=== PATIENT | female | born 2000 | race Caucasian/White ===

== ENCOUNTER → 2025-02-09 | Outpatient (CLI) | payer OTHER ==
[~2025-02-09] MED LIST: ONDA4 PO; RXONDA4ODT MM
== END | disposition home or self-care (01) ==
LOC: LAB SHORT 16:36 → LAB 16:36
DX: O09.93 Supervision of high risk pregnancy, unspecified, third trimester (principal)
CPT/HCPCS: 87081; 87150

== ENCOUNTER 2025-03-10 04:01 | Inpatient (IN) | payer OTHER ==
[~2025-03-10] VITALS: Ht 167.6 cm; Wt 77.7 kg
[2025-03-10] VITALS (12 sets, daily range): BP systolic 111–170; BP diastolic 59–86
[2025-03-10] MEDS ORDERED: OXYTOCIN/RINGER'S LACTATE 500 ML IV PRN (04:30)
[2025-03-10] MEDS ORDERED: FentaNYL Citrate 50 MCG/ML 2 ML Injection IV PRN (04:30)
[2025-03-10] MEDS ORDERED: ePHEDrine Sulfate 50 MG/ML 1ML Injection XX PRN (04:30)
[2025-03-10] MEDS ORDERED: Carboprost Tromethamine 250 MCG/ML 1ML Amp IM PRN ×2 (04:30→07:05)
[2025-03-10] MEDS ORDERED: Ondansetron HCl 2 MG / ML 2ML Vial IV PRN (04:30)
[2025-03-10] MEDS ORDERED: Methylergonovine Maleate 0.2MG / ML 1ML Amp IM PRN ×2 (04:30→07:10)
[2025-03-10] MEDS ORDERED: Oxytocin 10 Unit / ML Vial IM PRN (04:30)
[2025-03-10] MEDS ORDERED: FentaNYL 2mcg/ml-Bup 0.1% Epd 250 ML EPI PRN (04:30)
[2025-03-10] MEDS ORDERED: Tranexamic Acid 100 ML IV SCH (04:50)
[2025-03-10 04:55] LABS: BASOPHILS ABSOLUTE AUTO 0.03 K/mm3 (0.00-0.23); BASOPHILS PERCENT AUTO 0 % (0-2); EOSINOPHILS ABSOLUTE AUTO 0.06 K/mm3 (0.00-0.68); EOSINOPHILS PERCENT AUTO 1 % (0-6); Hematocrit 38.3 % (33.0-51.0); Hemoglobin 13.0 g/dL (11.5-16.0); IMMATURE GRAN ABSOLUTE AUTO 0.06 K/mm3 (0.00-0.10); IMMATURE GRAN PERCENT AUTO 1 % (0-1); LYMPHOCYTES ABSOLUTE AUTO 1.95 K/mm3 (0.84-5.20); LYMPHOCYTES PERCENT AUTO 16 % (21-46); MONOCYTES ABSOLUTE AUTO 0.81 K/mm3 (0.16-1.47); MONOCYTES PERCENT AUTO 7 % (4-13); Mean Corpuscular HGB Conc 33.9 g/dL (31.5-36.5); Mean Corpuscular Volume 93 fL (80-100); NEUTROPHILS ABSOLUTE AUTO 9.55 K/mm3 (1.96-9.15); NEUTROPHILS PERCENT AUTO 77 % (41-73); NRBC ABSOLUTE 0.00 K/mm3 (0.00-0.02); NRBC Auto 0.0 /100 WBC (0.0-0.2); Platelet Count 301 K/mm3 (150-400); RDW Coefficient Variation 13.2 % (11.7-14.2); RDW Standard Deviation 45.0 fL (35.1-46.3)
[2025-03-10] MEDS ORDERED: PRENATAL TABLE1 EAC2 PO (06:08)
[2025-03-10] MEDS ORDERED: Rho(D) Immune Globulin 300 MCG / SYR IM ONE (07:05)
[2025-03-10] MEDS ORDERED: Benzocaine Topical Anesthetic Spray 60GM TOP PRN (07:05)
[2025-03-10] MEDS ORDERED: Witch Hazel/Glycerin PADS TOP PRN (07:05)
[2025-03-10] MEDS ORDERED: Oxytocin 10 Unit / ML Vial IM ONE (07:10)
[2025-03-10] MEDS ORDERED: OXYTOCIN/RINGER'S LACTATE 500 ML IV SCH (07:10)
[2025-03-10] MEDS ORDERED: Ketorolac Tromethamine 30mg Vial IV SCH (07:20)
[2025-03-10] MEDS ORDERED: Prenatal Vit/FE Fumarate/FA 1 Tab PO SCH (09:00)
[2025-03-11 03:03] VITALS: BP 127/82
[2025-03-11 07:50] VITALS: BP 133/84
== END 2025-03-11 09:40 | disposition home or self-care (01) | DRG 806 ==
LOC: OBS 04:01 → BC 04:02 → OBS 04:30 → BC 04:31
PROVIDERS: ADMIT Advanced Practice Midwife
PROC: 10E0XZZ Delivery of Products of Conception, External Approach (ICD-10-PCS; principal; 2025-03-10)
PROC: 0HQ9XZZ Repair Perineum Skin, External Approach (ICD-10-PCS; 2025-03-10)
PROC: 4A1HXCZ Monitoring of Products of Conception, Cardiac Rate, External Approach (ICD-10-PCS; 2025-03-10)
DX: O43.123 Velamentous insertion of umbilical cord, third trimester (principal); O99.324 Drug use complicating childbirth; Z37.0 Single live birth; Z3A.39 39 weeks gestation of pregnancy; F12.90 Cannabis use, unspecified, uncomplicated; O70.0 First degree perineal laceration during delivery
CPT/HCPCS: 36415; 59025; 85025; 85460; 86850; 86900; 86901; 99214; A9270; J1885; J2590; J2791; J7120